=== PATIENT | female | born 1985 | race Caucasian/White ===

== ENCOUNTER 2017-06-22 11:49 | Observation (INO) | payer BC ==
[~2017-06-22] VITALS: Ht 180.3 cm; Wt 95.0 kg
[2017-06-22] MEDS ORDERED: TERBUTALINE 1 MG/ML, 1ML ONE (12:20)
[2017-06-22] MEDS ORDERED: TERBUTALINE 1 MG/ML, 1ML IV ONE (12:30)
[2017-06-22] MEDS ORDERED: PLEASE ENTER HEIGHT AND WEIGHT MC SCH (12:30)
== END 2017-06-22 12:50 | disposition home or self-care (01) ==
LOC: LDIP 11:49
PROVIDERS: ADMIT Obstetrics & Gynecology Maternal & Fetal Medicine; ATTEND Obstetrics & Gynecology Maternal & Fetal Medicine
DX: O99.513 Diseases of the respiratory system complicating pregnancy, third trimester (principal); Z3A.36 36 weeks gestation of pregnancy
CPT/HCPCS: 59025; 59412; G0378

== ENCOUNTER 2017-07-09 08:14 | Outpatient (CLI) | payer BC ==
[~2017-07-09] VITALS: Ht 180.3 cm; Wt 97.3 kg
[2017-07-09 08:26] VITALS: BP 118/65
== END 2017-07-09 08:45 | disposition home or self-care (01) ==
LOC: LDOP 08:14
PROVIDERS: ATTEND Obstetrics & Gynecology Maternal & Fetal Medicine
DX: O36.8130 Decreased fetal movements, third trimester, not applicable or unspecified (principal); Z3A.39 39 weeks gestation of pregnancy
CPT/HCPCS: 59025; 99211; G0463

== ENCOUNTER 2017-07-13 05:07 | Inpatient (IN) | payer BC ==
[~2017-07-13] VITALS: Ht 180.3 cm; Wt 99.1 kg
[2017-07-13] MEDS ORDERED: OXYTOCIN 30U/ 0.9% NaCL 500ML 500 ML IV ONE (05:09)
[2017-07-13] MEDS ORDERED: OXYTOCIN 30U/ 0.9% NaCL 500ML 500 ML IV PRN (05:09)
[2017-07-13] MEDS ORDERED: OXYTOCIN 30U/ 0.9% NaCL 500ML 500 ML ONE (05:14)
[2017-07-13] MEDS ORDERED: MISOPROSTOL 200 MCG TABLET ONE (05:14)
[2017-07-13] MEDS ORDERED: NEWBORN KIT ONE (05:14)
[2017-07-13] MEDS ORDERED: LIDOCAINE 1%, 20ML ONE (05:14)
[2017-07-13] MEDS ORDERED: ALUMINUM/MAG/SIMETHICONE 30 ML UDC PO PRN (05:30)
[2017-07-13] MEDS ORDERED: FENTANYL PF 100 MCG/2ML IVPush PRN (05:30)
[2017-07-13] MEDS ORDERED: TERBUTALINE 1 MG/ML, 1ML SQ PRN (05:30)
[2017-07-13] MEDS ORDERED: SODIUM CHLORIDE FLUSH 10ML SYR IVF PRN (05:30)
[2017-07-13] MEDS: LACTATED RINGERS 1,000 ML IV SCH ×10 (05:30→23:47)
[2017-07-13] MEDS ORDERED: TERBUTALINE 1 MG/ML, 1ML IVPush PRN ×2 (05:30)
[2017-07-13] MEDS ORDERED: FENTANYL PF 100 MCG/2ML IV PRN ×2 (05:30→16:00)
[2017-07-13] MEDS ORDERED: ONDANSETRON 2MG/ML, 2ML IVPush PRN ×2 (05:30→16:00)
[2017-07-13] MEDS ORDERED: PLEASE ENTER HEIGHT AND WEIGHT MC SCH (05:30)
[2017-07-13 05:44] VITALS: BP 119/72
[2017-07-13 06:05] LABS: BASOPHILS # (AUTO) 0.01 x10^3/uL (0-0.1); BASOPHILS % (AUTO) 0 % (0-1); EOSINOPHILS # (AUTO) 0.03 x10^3/uL (0-0.4); EOSINOPHILS % (AUTO) 0 % (1-7); LYMPHOCYTES # (AUTO) 1.52 x10^3/uL (1-3.4); LYMPHOCYTES % (AUTO) 17 % (22-44); MD NO; MEAN CORPUSCULAR HEMOGLOBIN 31.2 pg (27.0-34.8); MEAN CORPUSCULAR HGB CONC 34.6 g/dL (32.4-35.8); MEAN CORPUSCULAR VOLUME 90.3 fL (80-100); MEAN PLATELET VOLUME 9.4 fL (7.4-10.4); MONOCYTES # (AUTO) 0.87 x10^3/uL (0.2-0.8); MONOCYTES % (AUTO) 10 % (2-9); NEUTROPHILS # (AUTO) 6.77 x10^3/uL (1.8-6.8); NEUTROPHILS % (AUTO) 74 % (42-75); PLATELET COUNT 174 x10^3/uL (130-400); RED BLOOD COUNT 4.15 x10^6/uL (3.82-5.3); RED CELL DISTRIBUTION WIDTH 13.8 % (9.6-15.2)
[2017-07-13] MEDS ORDERED: LACTATED RINGERS 1,000 ML IV SCH (11:55)
[2017-07-13] MEDS ORDERED: FENTANYL/BUPIV./NS/PF 250 ML EPIDCONT SCH (11:55)
[2017-07-13] MEDS ORDERED: NALOXONE 0.4 MG/ML, 1ML IVPush PRN (12:00)
[2017-07-13] MEDS ORDERED: EPHEDRINE 50 MG/ML, 1ML IVPush PRN ×2 (12:00→16:00)
[2017-07-13] MEDS ORDERED: LACTATED RINGERS 1,000 ML IVBOLUS PRN (12:00)
[2017-07-13] MEDS ORDERED: BUPIVACAINE/PF 0.25% ONE (13:34)
[2017-07-13] MEDS ORDERED: FENTANYL/BUPIV./NS/PF 250 ML EPIDCONT ONE (13:34)
[2017-07-13] MEDS: D5%-LACTATED RINGERS 1,000 ML IV SCH ×2 (14:28→22:28)
[2017-07-13] MEDS ORDERED: TERBUTALINE 1 MG/ML, 1ML ONE (15:01)
[2017-07-13] MEDS: OXYTOCIN 30U/ 0.9% NaCL 500ML 500 ML IV SCH ×2 (15:34→15:47)
[2017-07-13] MEDS ORDERED: ONDANSETRON 2MG/ML, 2ML ONE (15:39)
[2017-07-13] MEDS ORDERED: SUCCINYLCHOLINE 20 MG/ML, 10ML ONE (15:39)
[2017-07-13] MEDS ORDERED: FENTANYL PF 100 MCG/2ML ONE ×2 (15:39)
[2017-07-13] MEDS ORDERED: PROPOFOL 10 MG/ML, 20ML ONE (15:39)
[2017-07-13] MEDS ORDERED: KETOROLAC 30 MG/1 ML ONE (15:39)
[2017-07-13] MEDS ORDERED: PHENYLEPHRINE 10 MG/ML ONE (15:39)
[2017-07-13] MEDS ORDERED: CEFAZOLIN 1,000 MG ONE (15:39)
[2017-07-13] MEDS ORDERED: OXYTOCIN 10 UNITS/ML, 1ML ONE (15:39)
[2017-07-13] MEDS ORDERED: DEXAMETHASONE 4 MG/ML, 1ML ONE (15:39)
[2017-07-13] MEDS ORDERED: EPHEDRINE 50 MG/ML, 1ML ONE (15:39)
[2017-07-13] MEDS ORDERED: SODIUM CITRATE/CITRIC ACID 30 ML UDC ONE (15:40)
[2017-07-13] MEDS ORDERED: SODIUM BICARBONATE 1 MEQ/ML, 50ML VIAL ONE (15:50)
[2017-07-13] MEDS ORDERED: morphine SULFATE 10 MG/ML, 1ML IVPush PRN (16:00)
[2017-07-13] MEDS ORDERED: MEPERIDINE/PF 50 MG/ML IM PRN (16:00)
[2017-07-13] MEDS ORDERED: ONDANSETRON 2MG/ML, 2ML IV PRN (16:00)
[2017-07-13] MEDS ORDERED: MEPERIDINE/PF 25MG/0.5ML IM PRN (16:00)
[2017-07-13] MEDS ORDERED: CARBOPROST TROMETHAMINE 250 MCG/ML, 1ML IM PRN (16:00)
[2017-07-13] MEDS ORDERED: PROMETHAZINE 25 MG/ML, 1ML IV PRN (16:00)
[2017-07-13] MEDS ORDERED: HYDROmorphone 1 MG/ML, 1ML IV PRN (16:00)
[2017-07-13] MEDS ORDERED: SODIUM CITRATE/CITRIC ACID 30 ML UDC PO ONE (16:00)
[2017-07-13] MEDS ORDERED: METHYLERGONOVINE 0.2 MG/ML IM PRN (16:00)
[2017-07-13] MEDS ORDERED: hydrALAzine 20 MG/ML, 1ML IV PRN (16:00)
[2017-07-13] MEDS ORDERED: ALBUTEROL/IPRATROPIUM 2.5MG/0.5MG, 3 ML NPPB PRN (16:00)
[2017-07-13] MEDS ORDERED: MEASLES,MUMPS&RUBELLA VACC/PF 0.5 ML SQ-VACC PRN (16:00)
[2017-07-13] MEDS ORDERED: OXYcodone 5 MG/5 ML ORAL.SOL UDC PO PRN (16:00)
[2017-07-13] MEDS ORDERED: ACETAMINOPHEN 325 MG TABLET PO PRN (16:00)
[2017-07-13] MEDS ORDERED: LACTATED RINGERS 1,000 ML IVBOLUS ONE (16:00)
[2017-07-13] MEDS ORDERED: DIPH,PERTUSS(ACELL),TET VAC/PF NC IM-VACC PRN (16:00)
[2017-07-13] MEDS ORDERED: MEPERIDINE/PF 25MG/0.5ML IVPush PRN (16:00)
[2017-07-13] MEDS ORDERED: MISOPROSTOL 200 MCG TABLET PR PRN (16:00)
[2017-07-13] MEDS ORDERED: LABETALOL 5MG/ML, 20ML IV PRN (16:00)
[2017-07-13] MEDS ORDERED: HYDROcodone/APAP 7.5-325MG/15ML UDC PO PRN (16:00)
[2017-07-13] MEDS ORDERED: METOCLOPRAMIDE 5 MG/ML, 2ML IV ONE (16:00)
[2017-07-13] MEDS ORDERED: OXYcodone/APAP 5/325MG TABLET ONE ×2 (17:36→18:16)
[2017-07-13] MEDS: OXYcodone/APAP 5/325MG TABLET PO PRN ×3 (17:37→22:18)
[2017-07-13 19:30] VITALS: BP 121/75
[2017-07-13] MEDS ORDERED: RHOGAM FROM BLOOD BANK 1 NOTE EA IM/IV ONE (22:00)
[2017-07-13] MEDS: KETOROLAC 30 MG/1 ML IV SCH ×2 (22:00→22:18)
[2017-07-14 00:30] VITALS: BP 111/65
[2017-07-14] MEDS: OXYTOCIN 30U/ 0.9% NaCL 500ML 500 ML IV SCH ×2 (01:34→01:47)
[2017-07-14] MEDS: LACTATED RINGERS 1,000 ML IV SCH ×4 (01:47→07:47)
[2017-07-14] MEDS: OXYcodone/APAP 5/325MG TABLET PO PRN ×5 (02:25→21:00)
[2017-07-14] MEDS: KETOROLAC 30 MG/1 ML IV SCH ×2 (04:19→09:44)
[2017-07-14 04:30] VITALS: BP 112/64
[2017-07-14 06:08] LABS: MEAN CORPUSCULAR HEMOGLOBIN 31.6 pg (27.0-34.8); MEAN CORPUSCULAR HGB CONC 34.2 g/dL (32.4-35.8); MEAN CORPUSCULAR VOLUME 92.3 fL (80-100); MEAN PLATELET VOLUME 9.3 fL (7.4-10.4); PLATELET COUNT 127 x10^3/uL (130-400); RED BLOOD COUNT 3.61 x10^6/uL (3.82-5.3); RED CELL DISTRIBUTION WIDTH 13.7 % (9.6-15.2)
[2017-07-14] MEDS: D5%-LACTATED RINGERS 1,000 ML IV SCH (06:28)
[2017-07-14] MEDS ORDERED: SIMETHICONE 80 MG CHEW TAB ONE (07:43)
[2017-07-14] MEDS: DOCUSATE 100 MG CAPSULE PO PRN ×2 (07:46→21:00)
[2017-07-14] MEDS: PRENATAL VIT/IRON/FA 1 EACH TABLET PO SCH (07:46)
[2017-07-14] MEDS: SIMETHICONE 80 MG CHEW TAB PO PRN ×4 (07:46→21:00)
[2017-07-14 08:00] VITALS: BP 107/70
[2017-07-14 09:02] LABS: BASOPHILS # (AUTO) 0.01 x10^3/uL (0-0.1); BASOPHILS % (AUTO) 0 % (0-1); EOSINOPHILS # (AUTO) 0.01 x10^3/uL (0-0.4); EOSINOPHILS % (AUTO) 0 % (1-7); LYMPHOCYTES # (AUTO) 0.93 x10^3/uL (1-3.4); LYMPHOCYTES % (AUTO) 6 % (22-44); MD SCAN; MONOCYTES # (AUTO) 0.69 x10^3/uL (0.2-0.8); MONOCYTES % (AUTO) 4 % (2-9); NEUTROPHILS # (AUTO) 14.87 x10^3/uL (1.8-6.8); NEUTROPHILS % (AUTO) 90 % (42-75)
[2017-07-14] MEDS: IBUPROFEN 600 MG TABLET PO PRN ×2 (15:05→21:05)
[2017-07-14 20:00] VITALS: BP 110/71
[2017-07-15] MEDS: SIMETHICONE 80 MG CHEW TAB PO PRN ×2 (00:56→07:53)
[2017-07-15] MEDS: OXYcodone/APAP 5/325MG TABLET PO PRN ×5 (00:56→13:56)
[2017-07-15] MEDS: IBUPROFEN 600 MG TABLET PO PRN ×2 (03:27→09:58)
[2017-07-15 07:10] VITALS: BP 114/72
[2017-07-15] MEDS: DOCUSATE 100 MG CAPSULE PO PRN (07:54)
[2017-07-15] MEDS: PRENATAL VIT/IRON/FA 1 EACH TABLET PO SCH (07:54)
[2017-07-15] MEDS ORDERED: OXYC-302 PO (13:06)
[2017-07-15] MEDS ORDERED: IBUP-1222 PO (13:07)
== END 2017-07-15 14:35 | disposition home or self-care (01) | DRG 766 ==
LOC: LDIP 05:07 → 2NW 19:15
PROVIDERS: ADMIT Obstetrics & Gynecology Maternal & Fetal Medicine; ATTEND Obstetrics & Gynecology Maternal & Fetal Medicine
PROC: 10D00Z1 Extraction of Products of Conception, Low, Open Approach (ICD-10-PCS; principal; 2017-07-13)
DX: O32.1XX0 Maternal care for breech presentation, not applicable or unspecified (principal); J45.909 Unspecified asthma, uncomplicated; O99.52 Diseases of the respiratory system complicating childbirth; O34.219 Maternal care for unspecified type scar from previous cesarean delivery; O32.0XX0 Maternal care for unstable lie, not applicable or unspecified; Z37.0 Single live birth; Z3A.39 39 weeks gestation of pregnancy
CPT/HCPCS: 36415; 85025; 85461; 86850; 86900; J0690; J1100; J1885; J2405; J2704; J2790; J3010; J0330; J2370; J2590; J3105; J7120; J7121